=== PATIENT | male | born 1985 | race Caucasian/White ===

== ENCOUNTER 2018-12-09 17:17 | Emergency (ER) | payer SELFPAY ==
[2018-12-09 17:27] VITALS: BP 154/85; PULSE 97; RESP 18; TEMP 37.3; O2SAT 97
--- NOTE | 2018-12-09 18:50 | NUR.NOTE ---
pt has deminished lung sounds and pain in right shoulder for one month without injury Nursing Note:
--- NOTE | 2018-12-09 19:17 | W.ED.GENAD ---
Discharge Plan Disposition Patient Disposition: HOME Condition: Stable Discharge Details Chief Complaint: Orthopedic Clinical Impression: Sprain of right shoulder, Medial epicondylitis Primary Care Provider: Unknown,Unknown ED Provider: Reid Granados Home Meds and New Rx's Prescriptions: New acetaminophen 500 mg capsule 1,000 mg PO Q6H PRN (Reason: pain) Qty: 30 RF: 0 No Action omeprazole 10 MG capsule,delayed release(DR/EC) 20 mg PO DAILY PRNRF: 0 ProAir HFA 8.5 GM HFA aerosol inhaler 1 - 2 puff Inhalation Q4H PRN Qty: 1 RF: 3 Discharge Instructions Instructions: Shoulder Sprain (ED), Shoulder Pain (ED) Additional Instructions: If you have any severe worsening of symptoms, dysfunction of your hand, persistent numbness or tingling please return to emergency department or follow-up on an emergent basis with your primary care provider. Otherwise take Tylenol as prescribed and use forearm brace for relief of symptoms. If not improving over the next couple weeks it is recommended that you follow-up with your primary care provider or orthopedist for reassessment. Referrals: Primary Care Provider [Outside] Discharge Data Discharge Date/Time-TO BE ENTERED AT DEPARTURE: 12/09/18 19:30 Medical Decision Making Right shoulder pain 1 month forearm pain over the last week. Patient is right arm dominant and reports repetitive motion of right upper extremity for his job. Physical exam shows soft tissue tenderness to humeral head and joint but range of motion is only limited by overhead extension otherwise full range of motion. Patient has normal axillary function but does have medial epicondyle tenderness with counterforce applied to forearm resolving any radiating numbness and tingling down the forearm. Suspect tendinopathy of the shoulder due to work environment and similar presentation with medial epicondylitis. Patient given counterforce brace and prescription for ibuprofen and informed to follow-up with local orthopedist or primary care provider when he returns home to [place]. Return precautions discussed. After discussion of diagnosis and plan of care patient has no further needs, questions, or concerns and states clear understanding to return to the emergency department for any worsening symptoms. HPI General Mode of arrival: ambulatory. Date/Time Provider Initiated Documentation: 12/09/18 18:29. Limitations to Documentation: no limitations. Information obtained by: patient and RN notes reviewed. History of Present Illness 33 year old M presents to the emergency department with the chief complaint of right shoulder pain, described as moderate, with intensity rated at 8. and is localized to the right and upper extremity. Patient started experiencing this month(s) (1) and it has been constant. No relieving factors improve symptom(s), Patient notes no other symptoms.. Patient did receive the following treatments prior to arrival, none Related Data Home Medications Medication Instructions Recorded Confirmed albuterol sulfate [Proair Hfa] 1 - 2 puff INHALATION Q4H PRN #1 07/12/13 12/09/18 inhaler omeprazole 20 mg PO DAILY PRN tab-cap 07/12/13 12/09/18 acetaminophen 1,000 mg PO Q6H PRN #30 cap 12/09/18 Previous Rx's Medication Instructions Recorded acetaminophen 1,000 mg PO Q6H PRN #30 cap 12/09/18 Allergies Allergy/AdvReac Type Severity Reaction Status Date / Time No Known Allergies Allergy Unverified 12/09/18 17:32 General Stated Complaint: Orthopedic MYRA: 4 Review of Systems Constitutional Denies chills and Denies fever(s) Cardiovascular Denies chest pain and Denies dyspnea Respiratory Denies cough and Denies dyspnea Musculoskeletal Reports as per HPI, Reports arthralgias, Reports muscle weakness, Reports numbness and Reports tingling Neurologic Reports numbness and Reports tingling PFSH Social History Smoking and Tabacco status: Current every day Exam Const General: cooperative, comfortable and no acute distress Orientation: alert, awake and oriented x3 Resp Effort & Inspection: normal respiratory effort and able to speak in complete sentences Cardio Rate: regular rate Rhythm: regular rhythm Extrem Right upper extremity: shoulder/upper arm Details: tenderness Location: over the subacromial bursa and abnormal ROM Details: pain with active ROM (With overhead extension) and with range as follows (full); no swelling, elbow/forearm Details: tenderness Location: of the medial epicondyle, normal ROM and distal pulses intact; no swelling, no crepitus and no deformity, wrist Details: normal to inspection, normal vascular exam, Tinel's negative and Phalen's negative; no tenderness and hand Details: normal capillary refill, neuromotor exam normal and abnormal ROM of finger (Weakness to thumb and index finger); no tenderness Course Vital Signs Temperature 37.3 C 12/09/18 17:27 Pulse 97 H 12/09/18 17:27 Respiratory Rate 18 12/09/18 17:27 Blood Pressure 154/85 H 12/09/18 17:27 Pulse Oximetry 97 12/09/18 17:27 Temperature 37.3 C 12/09/18 17:27 Pulse 97 H 12/09/18 17:27 Respiratory Rate 18 12/09/18 17:27 Respiratory Effort Non-Labored 12/09/18 17:29 Blood Pressure 154/85 H 12/09/18 17:27 Blood Pressure Position Sitting 12/09/18 17:27 Pulse Oximetry 97 12/09/18 17:27 Oxygen Delivery Method Room Air 12/09/18 17:27 Oxygen Flow Rate 0 12/09/18 17:27 Pain Level 8 12/09/18 17:31
--- NOTE | 2018-12-09 19:20 | ED.GENADUL_ITS ---
Discharge Plan Disposition Patient Disposition: HOME Condition: Stable Discharge Details Chief Complaint: Orthopedic Clinical Impression: Sprain of right shoulder, Medial epicondylitis Primary Care Provider: Unknown,Unknown ED Provider: Reid Granados Home Meds and New Rx's Prescriptions: New acetaminophen 500 mg capsule 1,000 mg PO Q6H PRN (Reason: pain) Qty: 30 RF: 0 No Action omeprazole 10 MG capsule,delayed release(DR/EC) 20 mg PO DAILY PRNRF: 0 ProAir HFA 8.5 GM HFA aerosol inhaler 1 - 2 puff Inhalation Q4H PRN Qty: 1 RF: 3 Discharge Instructions Instructions: Shoulder Sprain (ED), Shoulder Pain (ED) Additional Instructions: If you have any severe worsening of symptoms, dysfunction of your hand, persistent numbness or tingling please return to emergency department or follow- up on an emergent basis with your primary care provider. Otherwise take Tylenol as prescribed and use forearm brace for relief of symptoms. If not improving over the next couple weeks it is recommended that you follow-up with your primary care provider or orthopedist for reassessment. Referrals: Primary Care Provider [Outside] Discharge Data Discharge Date/Time-TO BE ENTERED AT DEPARTURE: 12/09/18 19:30 Medical Decision Making Right shoulder pain 1 month forearm pain over the last week. Patient is right arm dominant and reports repetitive motion of right upper extremity for his job. Physical exam shows soft tissue tenderness to humeral head and joint but range of motion is only limited by overhead extension otherwise full range of motion. Patient has normal axillary function but does have medial epicondyle tenderness with counterforce applied to forearm resolving any radiating numbness and tingling down the forearm. Suspect tendinopathy of the shoulder due to work environment and similar presentation with medial epicondylitis. Patient given counterforce brace and prescription for ibuprofen and informed to follow- up with local orthopedist or primary care provider when he returns home to [place]. Return precautions discussed. After discussion of diagnosis and plan of care patient has no further needs, questions, or concerns and states clear understanding to return to the emergency department for any worsening symptoms. HPI General Mode of arrival: ambulatory . Date/Time Provider Initiated Documentation: 12/09/18 18:29 . Limitations to Documentation: no limitations . Information obtained by: patient and RN notes reviewed . History of Present Illness 33 year old M presents to the emergency department with the chief complaint of right shoulder pain, described as moderate, with intensity rated at 8. and is localized to the right and upper extremity. Patient started experiencing this month(s) (1) and it has been constant. No relieving factors improve symptom(s), Patient notes no other symptoms.. Patient did receive the following treatments prior to arrival, none Related Data Home Medications Medication Instructions Recorded Confirmed albuterol sulfate [Proair Hfa] 1 - 2 puff INHALATION Q4H PRN #1 07/12/13 12/09/18 inhaler omeprazole 20 mg PO DAILY PRN tab-cap 07/12/13 12/09/18 acetaminophen 1,000 mg PO Q6H PRN #30 cap 12/09/18 Previous Rx's Medication Instructions Recorded acetaminophen 1,000 mg PO Q6H PRN #30 cap 12/09/18 Allergies Allergy/AdvReac Type Severity Reaction Status Date / Time No Known Allergies Allergy Unverified 12/09/18 17:32 General Stated Complaint: Orthopedic MYRA: 4 Review of Systems Constitutional Denies chills and Denies fever(s) Cardiovascular Denies chest pain and Denies dyspnea Respiratory Denies cough and Denies dyspnea Musculoskeletal Reports as per HPI, Reports arthralgias, Reports muscle weakness, Reports numbness and Reports tingling Neurologic Reports numbness and Reports tingling PFSH Social History Smoking and Tabacco status: Current every day Exam Const General: cooperative, comfortable and no acute distress Orientation: alert, awake and oriented x3 Resp Effort & Inspection: normal respiratory effort and able to speak in complete sentences Cardio Rate: regular rate Rhythm: regular rhythm Extrem Right upper extremity: shoulder/upper arm Details: tenderness Location: over the subacromial bursa and abnormal ROM Details: pain with active ROM (With overhead extension) and with range as follows (full); no swelling, elbow/forearm Details: tenderness Location: of the medial epicondyle, normal ROM and distal pulses intact; no swelling, no crepitus and no deformity, wrist Details: normal to inspection, normal vascular exam, Tinel's negative and Phalen's negative; no tenderness and hand Details: normal capillary refill, neuromotor exam normal and abnormal ROM of finger (Weakness to thumb and index finger); no tenderness Course Vital Signs Temperature 37.3 C 12/09/18 17:27 Pulse 97 H 12/09/18 17:27 Respiratory Rate 18 12/09/18 17:27 Blood Pressure 154/85 H 12/09/18 17:27 Pulse Oximetry 97 12/09/18 17:27 Temperature 37.3 C 12/09/18 17:27 Pulse 97 H 12/09/18 17:27 Respiratory Rate 18 12/09/18 17:27 Respiratory Effort Non-Labored 12/09/18 17:29 Blood Pressure 154/85 H 12/09/18 17:27 Blood Pressure Position Sitting 12/09/18 17:27 Pulse Oximetry 97 12/09/18 17:27 Oxygen Delivery Method Room Air 12/09/18 17:27 Oxygen Flow Rate 0 12/09/18 17:27 Pain Level 8 12/09/18 17:31
== END 2018-12-09 19:30 | disposition home or self-care (01) ==
PROVIDERS: Emergency Provider Nurse Practitioner Family
DX: S43.401A Unspecified sprain of right shoulder joint, initial encounter (principal); X50.3XXA Overexertion from repetitive movements, initial encounter
CPT/HCPCS: 29105; 99283; 99282